=== PATIENT | male | born 1940 | race Caucasian/White ===

== ENCOUNTER → 2016-05-17 | Outpatient (CLI) | payer MEDICARE, OTHER | LOC: RAD 12:45 | PROVIDERS: ATTEND Internal Medicine Critical Care Medicine | DX: R91.1 Solitary pulmonary nodule (principal) | CPT/HCPCS: 71250 ==

== ENCOUNTER → 2016-11-14 | Outpatient (CLI) | payer MEDICARE, OTHER ==
--- NOTE | 2016-11-14 13:31 | RADIOLOGY REPORT (SQ) ---
EXAM DESCRIPTION: CT CHEST WITHOUT COMPLETED DATE/TIME: 11/14/2016 1:02 pm REASON FOR STUDY: PULMONARY NODULE (R91.1) R91.1 SOLITARY PULMONARY NODULE COMPARISON: 05/17/2016 and 01/25/2016. TECHNIQUE: CT scan performed of the chest without intravenous contrast. Images reviewed with lung, soft tissue and bone windows. Reconstructed coronal and sagittal MPR images reviewed. All images st ored on PACS. All CT scanners at this facility use dose modulation, iterative reconstruction, and/or weight based d osing when appropriate to reduce radiation dose to as low as reasonably achievable (ALARA). [facility]: Dose Right [facility]: CareDose [facility]: Dose Right [facility]: Teradose 4D [facility]: Smart [employer] RADIATION DOSE: Up-to-date CT equipment and radiation dose reduction techniques were employed. CTDIv ol: 10.2 mGy. DLP: 424 mGy-cm. mGy. LIMITATIONS: No technical limitations. FINDINGS: LUNGS AND PLEURA: Emphysematous changes. Stable flat 7 mm nodule along the right minor fi ssure. No change. No new nodules or masses. No infiltrates. No pleural effusion or pleural thicke alberto. No pneumothorax. HILAR AND MEDIASTINAL STRUCTURES: No identified masses or abnormal nodes. No obvious aneurysm. HEART AND VASCULAR STRUCTURES: No aneurysm. No pericardial effusion. UPPER ABDOMEN: Renal cysts appear unchanged although not fully imaged. Limited exam. THYROID AND OTHER SOFT TISSUES: No masses. No adenopathy. BONES: No significant finding. Degenerative changes in the spine. HARDWARE: None in the chest. OTHER: No other significant findings. IMPRESSION: STABLE NONCONTRAST CT OF THE CHEST. NO CHANGE IN THE 7 MM NODULE IN THE RIGHT MINOR FIS SURE. FOLLOW-UP CLINICALLY INDICATED. COMMENT: [place] CRITERIA FOR FOLLOW-UP OF PULMONARY NODULES Incidentally detected new nodules in persons 35 or older. HIGH RISK: History of smoking or other known risk factors. 6-8mm single solid nodule: LOW RISK: CT 6-12 mo; then consider CT 18-24 mo. HIGH RISK: CT 6-12 mo; th en CT 18-24 mo. TECHNICAL DOCUMENTATION: JOB ID: [id number] Quality ID # [id number]: Final reports with documentation of one or more dose reduction techniques (e.g., Au tomated exposure control, adjustment of the mA and/or kV according to patient size, use of iterative reconstruction technique) 2010 [employer]- All Rights Reserved
== END ==
LOC: RAD 12:40
PROVIDERS: ATTEND Internal Medicine Critical Care Medicine
DX: R91.1 Solitary pulmonary nodule (principal)
CPT/HCPCS: 71250

== ENCOUNTER → 2017-01-03 | Outpatient (CLI) | payer MEDICARE, OTHER ==
--- NOTE | 2017-01-03 11:43 | RADIOLOGY REPORT (SQ) ---
EXAM DESCRIPTION: U/S RETROPERITON (RENAL/AORTA) COMPLETED DATE/TIME: 01/03/2017 11:03 am REASON FOR STUDY: RENAL MASS N28.1 CYST OF KIDNEY, ACQUIRED COMPARISON: 2015. TECHNIQUE: Dynamic and static grayscale images acquired of the kidneys and bladder and recorded on P ACS. Additional selected color Doppler and spectral images recorded. LIMITATIONS: None. FINDINGS: RIGHT KIDNEY: Normal size. Normal echogenicity. No solid or suspicious masses. Renal cyst s are present, measuring up to almost 6 cm maximally. No hydronephrosis. No calcifications. LEFT KIDNEY: Normal size. Normal echogenicity. No solid or suspicious masses. Renal cysts are prese nt, measuring up to just over 2 cm maximally. No hydronephrosis. No calcifications. BLADDER: No masses. OTHER FINDINGS: Prostate 4.3 x 4.9 x 3.8 cm, mildly enlarged and heterogeneous. This indents the elizabeth dder base. IMPRESSION: No renal obstruction or solid mass evident. Bilateral renal cysts are present. TECHNICAL DOCUMENTATION: JOB ID: [id number] [employer]- All Rights Reserved
== END ==
LOC: RAD 09:50
PROVIDERS: ATTEND Urology
DX: N28.1 Cyst of kidney, acquired (principal)
CPT/HCPCS: 76770

== ENCOUNTER → 2017-11-27 | Outpatient (CLI) | payer MEDICARE, OTHER ==
--- NOTE | 2017-11-27 10:33 | RADIOLOGY REPORT (SQ) ---
EXAM DESCRIPTION: CT CHEST WITHOUT COMPLETED DATE/TIME: 11/27/2017 10:15 am REASON FOR STUDY: SOLITARY PULMONARY NODULE (R91.1) R91.1 SOLITARY PULMONARY NODULE COMPARISON: 11/14/2016 TECHNIQUE: CT scan performed of the chest without intravenous contrast. Images reviewed with lung, soft tissue and bone windows. Reconstructed coronal and sagittal MPR images reviewed. All images st ored on PACS. All CT scanners at this facility use dose modulation, iterative reconstruction, and/or weight based d osing when appropriate to reduce radiation dose to as low as reasonably achievable (ALARA). [facility]: Dose Right [facility]: CareDose [facility]: Dose Right [facility]: Teradose 4D [facility]: Onit RADIATION DOSE: CT Rad equipment meets quality standard of care and radiation dose reduction techniq ues were employed. CTDIvol: 7.7 mGy. DLP: 325 mGy-cm. mGy. LIMITATIONS: No technical limitations. FINDINGS: LUNGS AND PLEURA: Centrilobular emphysema. Stable 7 mm nodule in the middle lobe. This h as been stable since January 2016. No new nodules. No effusions. HILAR AND MEDIASTINAL STRUCTURES: No identified masses or abnormal nodes. No obvious aneurysm. HEART AND VASCULAR STRUCTURES: No aneurysm. No pericardial effusion. UPPER ABDOMEN: No significant findings. Limited exam. THYROID AND OTHER SOFT TISSUES: No masses. No adenopathy. BONES: No significant finding. HARDWARE: None in the chest. OTHER: No other significant findings. IMPRESSION: COPD. Stable right middle lobe nodule since January 2016. TECHNICAL DOCUMENTATION: JOB ID: [id number] Quality ID # [id number]: Final reports with documentation of one or more dose reduction techniques (e.g., Au tomated exposure control, adjustment of the mA and/or kV according to patient size, use of iterative reconstruction technique) 2010 [employer]- All Rights Reserved Reading location - IP/workstation name: [email or web address]
== END ==
LOC: RAD 10:03
PROVIDERS: ATTEND Internal Medicine Critical Care Medicine
DX: R91.1 Solitary pulmonary nodule (principal)
CPT/HCPCS: 71250

== ENCOUNTER → 2018-06-24 | Outpatient (CLI) | payer MEDICARE, OTHER ==
[2018-06-24 11:13] LABS: ANION GAP 9 (5-19); BLOOD UREA NITROGEN 18 mg/dL (7-20); CALCIUM 9.5 mg/dL (8.4-10.2); CARBON DIOXIDE 31 mmol/L (22-30); CHLORIDE 100 mmol/L (98-107); GLUCOSE 98 mg/dL (75-110); POTASSIUM 4.4 mmol/L (3.6-5.0); SODIUM 139.6 mmol/L (137-145)
== END ==
LOC: OD 09:57
PROVIDERS: ATTEND Internal Medicine Nephrology
DX: I12.9 Hypertensive chronic kidney disease with stage 1 through stage 4 chronic kidney disease, or unspecified chronic kidney disease (principal); N18.3 Chronic kidney disease, stage 3 (moderate)
CPT/HCPCS: 36415; 80048; 83970

== ENCOUNTER → 2018-10-03 | Outpatient (CLI) | payer MEDICARE, OTHER ==
[2018-10-03 08:50] LABS: ABSOLUTE BASOPHILS # (AUTO) 0.1 10^3/uL (0.0-0.2); ABSOLUTE EOSINOPHILS # (AUTO) 1.8 10^3/uL (0.0-0.6); ABSOLUTE LYMPHOCYTES (AUTO) 1.4 10^3/uL (0.5-4.7); ABSOLUTE MONOCYTES (AUTO) 0.9 10^3/uL (0.1-1.4); ABSOLUTE NEUT (AUTO) 5.3 10^3/uL (1.7-8.2); BASOPHILS % (AUTO) 0.6 % (0-2); EOSINOPHILS % (AUTO) 18.4 % (0-6); HEMATOCRIT 40.8 % (37.9-51.0); HEMOGLOBIN 13.6 g/dL (13.5-17.0); LYMPHOCYTES % (AUTO) 15.1 % (13-45); MEAN CORPUSCULAR HGB CONC 33.3 g/dL (32.0-36.0); MEAN CORPUSCULAR VOLUME 90 fl (80-97); MONOCYTES % (AUTO) 9.9 % (3-13); PLATELET COUNT 208 10^3/uL (150-450); RED BLOOD COUNT 4.53 10^6/uL (4.35-5.55); RED CELL DISTRIBUTION WIDTH 13.5 % (11.5-14.0); TOTAL CELLS COUNTED % (AUTO) 100 %; WHITE BLOOD COUNT 9.5 10^3/uL (4.0-10.5)
[2018-10-03 09:20] LABS: ALBUMIN 4.4 g/dL (3.5-5.0); ANION GAP 9 (5-19); BLOOD UREA NITROGEN 27 mg/dL (7-20); CALCIUM 9.1 mg/dL (8.4-10.2); CARBON DIOXIDE 30 mmol/L (22-30); CHLORIDE 104 mmol/L (98-107); GLUCOSE 97 mg/dL (75-110); PHOSPHORUS 3.9 mg/dL (2.5-4.5); POTASSIUM 4.5 mmol/L (3.6-5.0); SODIUM 142.7 mmol/L (137-145)
[2018-10-03 10:51] LABS: APPEARANCE,URINE CLEAR; BILIRUBIN,URINE NEGATIVE (NEGATIVE); COLOR,URINE YELLOW; GLUCOSE, URINE NEGATIVE (NEGATIVE); KETONES,URINE NEGATIVE (NEGATIVE); LEUKOCYTE ESTERASE,URINE NEGATIVE (NEGATIVE); NITRITE,URINE NEGATIVE (NEGATIVE); PROTEIN,URINE NEGATIVE (NEGATIVE); URINE SPECIFIC GRAVITY 1.018; UROBILINOGEN,URINE NEGATIVE mg/dL (<2.0)
[2018-10-04 13:37] LABS: CREATININE URINE 165.9 mg/dL (Not Estab.)
== END ==
LOC: OD 08:26
PROVIDERS: ATTEND Internal Medicine Nephrology
DX: I12.9 Hypertensive chronic kidney disease with stage 1 through stage 4 chronic kidney disease, or unspecified chronic kidney disease (principal); N18.3 Chronic kidney disease, stage 3 (moderate); E11.22 Type 2 diabetes mellitus with diabetic chronic kidney disease
CPT/HCPCS: 36415; 80069; 81001; 82043; 82306; 82570; 83970; 85025

== ENCOUNTER → 2019-02-28 | Outpatient (CLI) | payer MEDICARE, OTHER ==
[2019-02-28 10:19] LABS: ANION GAP 9 (5-19); BLOOD UREA NITROGEN 18 mg/dL (7-20); CALCIUM 9.6 mg/dL (8.4-10.2); CARBON DIOXIDE 32 mmol/L (22-30); CHLORIDE 100 mmol/L (98-107); GLUCOSE 140 mg/dL (75-110); POTASSIUM 4.4 mmol/L (3.6-5.0)
== END ==
LOC: OD 09:22
PROVIDERS: ATTEND Internal Medicine Nephrology
DX: I12.9 Hypertensive chronic kidney disease with stage 1 through stage 4 chronic kidney disease, or unspecified chronic kidney disease (principal); N18.3 Chronic kidney disease, stage 3 (moderate); N25.81 Secondary hyperparathyroidism of renal origin
CPT/HCPCS: 36415; 80048; 83970

== ENCOUNTER 2019-12-10 15:39 | Inpatient (IN) | payer MEDICARE, OTHER ==
[2019-12-10 16:00] LABS: ABSOLUTE BASOPHILS # (AUTO) 0.1 10^3/uL (0.0-0.2); ABSOLUTE EOSINOPHILS # (AUTO) 0.3 10^3/uL (0.0-0.6); ABSOLUTE LYMPHOCYTES (AUTO) 1.6 10^3/uL (0.5-4.7); ABSOLUTE MONOCYTES (AUTO) 2.3 10^3/uL (0.1-1.4); ABSOLUTE NEUT (AUTO) 8.2 10^3/uL (1.7-8.2); BASOPHILS % (AUTO) 0.6 % (0-2); EOSINOPHILS % (AUTO) 2.6 % (0-6); HEMATOCRIT 33.8 % (37.9-51.0); HEMOGLOBIN 11.4 g/dL (13.5-17.0); MEAN CORPUSCULAR HEMOGLOBIN 29.4 pg (27.0-33.4); MEAN CORPUSCULAR HGB CONC 33.7 g/dL (32.0-36.0); MEAN CORPUSCULAR VOLUME 87 fl (80-97); MONOCYTES % (AUTO) 18.4 % (3-13); PLATELET COUNT 287 10^3/uL (150-450); RED BLOOD COUNT 3.88 10^6/uL (4.35-5.55); RED CELL DISTRIBUTION WIDTH 14.2 % (11.5-14.0); SEGMENTED NEUTROPHILS % (AUTO) 65.4 % (42-78); TOTAL CELLS COUNTED % (AUTO) 100 %; WHITE BLOOD COUNT 12.5 10^3/uL (4.0-10.5)
[2019-12-10 16:03] LABS: INTERNATIONAL RATION (INR) 1.03; PROTHROMBIN TIME 13.7 SEC (11.4-15.4)
--- NOTE | 2019-12-10 16:14 | ER Document Report ---
ED General - General Chief Complaint: Palpitations Stated Complaint: HEART PALPITATIONS Time Seen by Provider: 12/10/19 15:51 Primary Care Provider: MATIAS ATKINSON MD [Primary Care Provider] - Follow up as needed TRAVEL OUTSIDE OF THE [place] IN LAST 30 DAYS: No - HPI Notes: Chief complaint: Palpitations and weakness History of present illness: 79-year-old male with history of CAD with multiple past stent placements states that he felt "weak" after returning home from grocery store early this afternoon. He decided to lie down at home to take a nap. Upon awakening he noticed that he had an irregular heartbeat. He took his blood pressure and this was low around 90/60 and the monitor also indicated irregularity of the heartbeat which is a new condition for this man. He denies any chest pain. He denies vomiting. He denies dyspnea. He denies any syncope or presyncope. Patient has been followed by sap pp consultant in [facility]. He is on chlorthalidone and a beta-shreya presumably for blood pressure management. He takes aspirin but is not on any other type of blood thinning agent. - Related Data Allergies/Adverse Reactions: No Known Allergies Allergy (Unverified 09/24/11 02:30) Home Medications: albuterol. Trelogy. Lipitor. Elsa. Atenolol. Famotidine. Aspirin. Vitamin E. Diovan. Zetia. Vitamin D3. Multivitamin Past Medical History - General Information source: Patient, [facility] Records - Social History Smoking Status: Current Every Day Smoker Frequency of alcohol use: None Drug Abuse: None Lives with: Family Family History: Reviewed & Not Pertinent - Past Medical History Cardiac Medical History: Reports: Hx Coronary Artery Disease, Hx Hypercholesterolemia, Hx Hypertension Denies: Hx Atrial Fibrillation, Hx Pulmonary Embolism Pulmonary Medical History: Reports: Hx COPD Neurological Medical History: Reports: None Endocrine Medical History: Denies: Hx Diabetes Mellitus Type 1, Hx Diabetes Mellitus Type 2, Hx Hyperthyroidism Renal/ Medical History: Reports: Hx Renal Insufficiency Past Surgical History: Reports: Hx Cardiac Surgery - stents times 2 - Immunizations Hx Diphtheria, Pertussis, Tetanus Vaccination: Yes Review of Systems - Review of Systems Notes: Constitutional: Negative for fever. HENT: Negative for sore throat. Eyes: Negative for visual changes. Cardiovascular: As per HPI. Respiratory: Chronic exertional dyspnea with intermittent wheezing secondary to COPD. Gastrointestinal: Negative for abdominal pain, vomiting or diarrhea. Genitourinary: Negative for dysuria. Musculoskeletal: Chronic intermittent swelling and pain both ankles. Skin: Negative for rash. Neurological: Negative for headaches, focal weakness or numbness. 10 point ROS negative except as marked above and in HPI. Physical Exam - Vital signs Vitals: Temp 97.8 F 12/10/19 15:40 - Notes Notes: GENERAL: Slender male appearing somewhat younger than stated age in no current distress. SKIN: Good turgor no rashes. HEAD: Normocephalic atraumatic. EYES: PERRLA. EOMI. Conjunctivae and sclerae clear. EARS: CANALS AND TMS CLEAR. NOSE: CLEAR. MOUTH: Moist mucosa. Good dentition. No stridor or edema. No drooling. NECK: Supple. No masses or thyromegaly. No adenopathy. Carotids 2+ without bruits. No JVD. BACK: Symmetrical without tenderness. CHEST: Respirations unlabored. Breath sounds clear and symmetrical. HEART: Irregularly irregular rhythm. No murmur gallop or rub. ABDOMEN: Soft nontender without masses, organomegaly or rebound. Bowel sounds normally active. No bruits. GENITALIA: Deferred. EXTREMITIES: No edema. No calf tenderness. Cap refill less than 1.5 seconds. Dorsalis pedis and posterior tibial pulses 3+ and symmetrical. NEUROLOGICAL: GCS 15. Alert and oriented x3. Fluent speech. Cranial nerves II through XII intact. Sensorimotor and cerebellar normal. Normal tone. PSYCHIATRIC: Appropriate affect. Course - Re-evaluation Re-evalutation: 12/10/19 16:14 Monitor shows atrial fibrillation with a controlled ventricular rate. We note the patient is already taking a beta-shreya. Twelve-lead EKG shows atrial fibrillation with an average rate of 76. There are no acute ST/T wave changes present. 12/10/19 18:06 Patient's potassium is marginally low at 3.4 with a normal magnesium level. He has some mild baseline renal insufficiency with creatinine approximately 1.7. He is mildly anemic at 11.6 g of hemoglobin consistent with his chronic renal insufficiency. His troponin is minimally elevated 0.05 which is probably due to his renal insufficiency. We will give him some IV hydration and some oral potassium as well as IV potassium. I will repeat a second troponin. If second troponin is trending downward and he converts back to a sinus rhythm I think he could probably go home. He would appear to be a candidate for initiation of therapy with Xarelto. Because of his renal insufficiency the dosage should be reduced to 15 mg daily. If he fails to return to normal sinus rhythm or his troponin rises he will require admission. I have paged Dr. Hall with [facility] who is covering for his sap pp consultant, Dr. Harpreet Khalil. Findings, clinical impression and plan of treatment have been discussed with patient/family. Understanding of current findings and recommendations has been acknowledged by them and there is agreement regarding disposition and follow-up. 12/10/19 18:51 12/10/19 19:11 12/10/19 19:22 Current findings and management discussed with Dr. Hall online marketer for Dr. Harpreet Khalil. He is comfortable with management plan outlined above. He furthermore states that because this man has adequate rate control he would still be comfortable with us discharging the patient if he fails to convert back to sinus rhythm at this time. They will see him in the office tomorrow for follow-up. We are awaiting the second troponin and after this is reviewed we anticipate discharge. - Vital Signs Vital signs: Temp Pulse Resp BP Pulse Ox 97.8 F 96 12/10/19 15:40 12/10/19 15:48 - Laboratory Result Diagrams: 12/10/19 15:03 12/10/19 15:03 Laboratory results interpreted by me: 12/10/19 12/10/19 12/10/19 15:03 15:03 15:03 WBC 12.5 H RBC 3.88 L Hgb 11.4 L Hct 33.8 L RDW 14.2 H [place] % (Auto) 18.4 H Absolute Monos (auto) 2.3 H Sodium 134.4 L Potassium 3.4 L Chloride 95 L BUN 24 H Creatinine 1.77 H Est GFR ( Amer) 45 L Est GFR (MDRD) Non-Af 37 L NT-Pro-B Natriuret Pep 688 H - EKG Interpretation by Me Additional EKG results interpreted by me: 12/10/19 16:15 Twelve-lead EKG from 1554 hrs. reviewed contemporaneously by me demonstrating atrial fibrillation with controlled ventricular response of 76. His QRS and QT intervals are normal. His QRS axis is normal at +[address]/T wave changes present. Interpretation: Atrial fibrillation with controlled ventricular rate. Indication for current study: Palpitations. Discharge - Discharge Clinical Impression: Atrial fibrillation new onset, Hypokalemia, Chronic renal insufficiency Disposition: HOME, SELF-CARE Additional Instructions: Atrial Fibrillation Atrial fibrillation is an abnormal heart rhythm, caused by irregular electrical circuits in the upper heart chamber. It can be caused by heart valve disease, hardening of the arteries, or metabolic problems such as thyroid disease, or may occur without a clear cause. Atrial fibrillation may occur only occasionally, or may be chronic. Atrial fibrillation often results in a very fast heart rate, with palpitations, lightheadedness, and shortness of breath. Treatment is to slow the abnormally fast rate, and to convert the rhythm back to normal, if possible. Many patients stay in atrial fibrillation for years without symptoms or complications. Your doctor will decide whether you can be converted back to a normal heart rhythm. Contact the doctor or emergency medical system at once if you develop chest pain, shortness of breath, or severe lightheadedness, or if you develop any disturbance of consciousness, problems with speech, or localized weakness.Call your sap pp consultant (Dr. Harpreet Khalil) tomorrow morning to arrange follow-up in the office within the next 24 hours. Add these 2 new medications: Xarelto 15 mg daily Potassium extended release 20 mg daily Return here as needed for new or worsening symptoms: Development of chest pain Shortness of breath that is worsening Vomiting Fainting Overall worsening Prescriptions: Potassium Chloride 20 meq PO DAILY 7 Days #7 tab.er.prt Rivaroxaban [Xarelto 15 mg Tablet] 15 mg PO DAILY 30 Days #30 tablet Referrals: MATIAS ATKINSON MD [Primary Care Provider] - Follow up as needed HARPREET KAHLIL MD [NO LOCAL MD] - Follow up as needed
[2019-12-10 16:21] LABS: ALBUMIN 3.6 g/dL (3.5-5.0); ALKALINE PHOSPHATASE 85 U/L (38-126); ANION GAP 11 (5-19); ASPARTATE AMINO TRANSFERASE 33 U/L (17-59); BILIRUBIN,DIRECT 0.4 mg/dL (0.0-0.4); BILIRUBIN,TOTAL 0.8 mg/dL (0.2-1.3); BLOOD UREA NITROGEN 24 mg/dL (7-20); CALCIUM 8.5 mg/dL (8.4-10.2); CARBON DIOXIDE 28 mmol/L (22-30); CHLORIDE 95 mmol/L (98-107); CREATINE KINASE 79 U/L (55-170); GLUCOSE 107 mg/dL (75-110); POTASSIUM 3.4 mmol/L (3.6-5.0); TOTAL PROTEIN 6.9 g/dL (6.3-8.2)
--- NOTE | 2019-12-10 16:27 | RADIOLOGY REPORT (SQ) ---
EXAM DESCRIPTION: CHEST SINGLE VIEW IMAGES COMPLETED DATE/TIME: 12/10/2019 4:18 pm REASON FOR STUDY: chest pain COMPARISON: None. EXAM PARAMETERS: NUMBER OF VIEWS: One view. TECHNIQUE: Single frontal radiographic view of the chest acquired. RADIATION DOSE: NA LIMITATIONS: None. FINDINGS: LUNGS AND PLEURA: There is hyperexpansion. No consolidation or effusion. No pneumothorax . MEDIASTINUM AND HILAR STRUCTURES: No masses. Contour normal. HEART AND VASCULAR STRUCTURES: Heart normal in size. Normal vasculature. BONES: No acute findings. HARDWARE: None in the chest. OTHER: No other significant finding. IMPRESSION: COPD. No acute findings. TECHNICAL DOCUMENTATION: JOB ID: [id number] 2010 [employer]- All Rights Reserved Reading location - IP/workstation name: [email or web address]
[2019-12-10 16:33] LABS: CREATINE KINASE MB 1.23 ng/mL (<4.55)
[2019-12-10 16:38] LABS: TROPONIN I 0.055 ng/mL
[2019-12-10] MEDS ORDERED: NORMAL SALINE 1000 ML 1,000 ML IV ONE ×2 (17:40→21:07)
[2019-12-10] MEDS ORDERED: POTASSI CL 20 MEQ/50 ML RIDER 20 MEQ/50 ML RTUPB IV ONE (17:41)
[2019-12-10] MEDS ORDERED: POTASSIUM CHLORIDE 20 MEQ PACKET PO ONE (17:42)
[2019-12-10] MEDS ORDERED: ASPIRIN 81 MG TABLET, CHEWABLE PO ONE (19:59)
[2019-12-10] MEDS ORDERED: ENOXAPARIN SODIUM INJ 80 MG/0.8 ML DISP.SYRIN SUBCUT ONE (20:50)
[2019-12-10] MEDS ORDERED: DEXTROSE 40% GEL 15 GM TUBE PO PRN ×2 (21:03)
[2019-12-10] MEDS ORDERED: DEXTROSE 50%-WATER 25 GM/50 ML DISP.SYRIN IV PRN ×2 (21:03)
[2019-12-10] MEDS ORDERED: ONDANSETRON HCL INJ/PF 4 MG/2 ML SDV IV PRN (21:03)
[2019-12-10] MEDS ORDERED: OXYCODONE-ACETAMINOPHEN 5-325 MG TABLET PO PRN (21:03)
[2019-12-10] MEDS ORDERED: TEMAZEPAM 7.5 MG CAPSULE PO PRN (21:03)
[2019-12-10] MEDS ORDERED: LEVALBUTEROL HCL NEB 0.63 MG/3 ML AMPUL NEB PRN (21:03)
[2019-12-10] MEDS ORDERED: ACETAMINOPHEN 325 MG TABLET PO PRN (21:03)
[2019-12-10] MEDS ORDERED: GLUCAGON,HUMAN RECOMB 1 MG INJ SUBCUT PRN (21:03)
[2019-12-10] MEDS ORDERED: PROMETHAZINE HCL INJ 25 MG/1 ML VIAL IV PRN (21:03)
[2019-12-10] MEDS ORDERED: NITROGLYCERIN 0.4 MG/TAB 25 TAB/BOTTLE SL PRN (21:11)
[2019-12-10] MEDS ORDERED: MORPHINE SULFATE 10 MG/ML INJ IV PRN (21:11)
[2019-12-10] MEDS ORDERED: HYDRALAZINE HCL INJ/PF 20 MG/1 ML SDV IV PRN (21:16)
[2019-12-10] MEDS ORDERED: METOPROLOL TARTRATE PF/INJ 5 MG/5 ML SDV IV PRN (21:16)
--- NOTE | 2019-12-10 21:41 | PDOC H&P ---
History of Present Illness Admission Date/PCP: 12/10/19 20:33 MATIAS ATKINSON MD History of Present Illness: Josep AGRAWAL is a 79 year old male past medical history of CAD status post PCI x2 and stent placement, non-oxygen dependent COPD, hypertension, CKD, hyperlipidemia, presented to ED complaining of feeling weak after returning from grocery shopping this afternoon, patient decided to take a nap but upon awakening he felt palpitation and checked his pressure which was the 90s, he d oes not have any history of arrhythmia however stated that for long time he has been feeling skipped beats which he has reported to his care attendant before, denies any lightheadedness, chest pain, diaphoresis, nausea, vomiting, dyspnea on exertion, orthopnea or paroxysmal nocturnal dyspnea. In ED he was noted to be A. fib RVR which converted spontaneously, ED physician had discussed this case with his care attendant Dr. Khalil at [facility] and it was decided for patient to be discharged and follow-up with his care attendant however second set of troponin came back 0.239 [address] Beckman care attendant was consulted by ED physician and he suggested for patient to be admitted, started on Lovenox in anticipation of a left heart cath on Sunday. Patient very hesitant to stay however after discussing with him that he may have had a heart attack and is not safe to leave patient decided to stay. Patient resting comfortably in bed in no apparent distress, palpitation has re solved, denies any chest pain, nausea, vomiting, diarrhea, fever, chills, cough, abdominal pain, constipation or any urinary symptoms. Past Medical History Cardiac Medical History: Reports: Coronary Artery Disease, Hyperlipidema, Hypertension Denies: Atrial Fibrillation, Pulmonary Embolism Pulmonary Medical History: Reports: Chronic Obstructive Pulmonary Disease (COPD) Neurological Medical History: Reports: None Endocrine Medical History: Denies: Diabetes Mellitus Type 1, Diabetes Mellitus Type 2, Hyperthyroidism Social History Lives with: Family Smoking Status: Current Every Day Smoker Electronic Cigarette use?: Yes Family History Family History: Reviewed & Not Pertinent Parental Family History Reviewed: Yes Children Family History Reviewed: Yes Sibling(s) Family History Reviewed.: Yes Medication/Allergy Home Medications: Albuterol Sulfate [Proair HFA Inhalation Aerosol 8.5 gm MDI] 1 puff IH Q4HP PRN 12/10/19 Aspirin [Aspirin 81 mg Chewable Tablet] 81 mg DAILY 12/10/19 Atenolol [Tenormin 50 mg Tablet] 25 mg TID 12/10/19 Atorvastatin Calcium [Lipitor 40 mg Tablet] 40 mg DAILY 12/10/19 Chlorthalidone [Hygroton 25 mg Tablet] 12.5 mg DAILY 12/10/19 Cholecalciferol (Vitamin D3) [Vitamin D3 1000 Unit Tablet] 1,000 unit PO QPM 12/10/19 Ezetimibe [Zetia] 10 mg PO DAILY 12/10/19 Famotidine [Acid Last Waxer] 20 mg PO TID 12/10/19 Fexofenadine HCl [Elsa Allergy] 180 mg DAILY 12/10/19 Fluticasone/Umeclidin/Vilanter [Trelegy 100-62.5-25 Mcg Ellipta 14 Dose/Dpi] 1 each DAILY 12/10/19 Multivitamin [Multivitamins] 1 cap DAILY 12/10/19 Valsartan [Diovan] 80 mg DAILY 12/10/19 Vitamin E 400 unit PO DAILY 12/10/19 Allergies/Adverse Reactions: No Known Allergies Allergy (Unverified 09/24/11 02:30) Review of Systems Review of Systems: as per hpi Physical Exam Vital Signs: Temp Pulse Resp BP Pulse Ox 97.8 F 22 H 103/55 L 96 12/10/19 15:40 12/10/19 21:01 12/10/19 21:01 12/10/19 21:01 Intake & Output 12/09/19 12/10/19 12/11/19 06:59 06:59 06:59 Intake Total 50 Balance 50 Weight 81.6 kg General appearance: PRESENT: no acute distress, well-developed, well-nourished Head exam: PRESENT: atraumatic, normocephalic Neck exam: ABSENT: carotid bruit, JVD, lymphadenopathy, thyromegaly Respiratory exam: PRESENT: clear to auscultation mars. ABSENT: rales, rhonchi, wheezes Cardiovascular exam: PRESENT: irregular rhythm, RRR. ABSENT: diastolic murmur, rubs, systolic murmur GI/Abdominal exam: PRESENT: normal bowel sounds, soft. ABSENT: distended, guarding, mass, organolmegaly, rebound, tenderness Extremities exam: PRESENT: full ROM. ABSENT: calf tenderness, clubbing, pedal edema Neurological exam: PRESENT: alert, awake, oriented to person, oriented to place, oriented to time, oriented to situation, CN II-XII grossly intact. ABSENT: motor sensory deficit Results Laboratory Results: 12/10/19 15:03 12/10/19 15:03 12/10/19 12/10/19 12/10/19 15:03 15:03 15:03 WBC 12.5 H RBC 3.88 L Hgb 11.4 L Hct 33.8 L MCV 87 MCH 29.4 MCHC 33.7 RDW 14.2 H Plt Count 287 Seg Neutrophils % 65.4 Sodium 134.4 L Potassium 3.4 L Chloride 95 L Carbon Dioxide 28 Anion Gap 11 BUN 24 H Creatinine 1.77 H Est GFR ( Amer) 45 L Glucose 107 Calcium 8.5 Magnesium 2.1 Total Bilirubin 0.8 AST 33 Alkaline Phosphatase 85 Total Protein 6.9 Albumin 3.6 TSH 12/10/19 15:03 WBC RBC Hgb Hct MCV MCH MCHC RDW Plt Count Seg Neutrophils % Sodium Potassium Chloride Carbon Dioxide Anion Gap BUN Creatinine Est GFR ( Amer) Glucose Calcium Magnesium Total Bilirubin AST Alkaline Phosphatase Total Protein Albumin TSH 2.63 12/10/19 12/10/19 12/10/19 15:03 15:03 15:03 Creatine Kinase 79 CK-MB (CK-2) 1.23 Troponin I 0.055 NT-Pro-B Natriuret Pep 688 H 12/10/19 19:08 Creatine Kinase CK-MB (CK-2) Troponin I 0.239 NT-Pro-B Natriuret Pep Impressions: Chest X-Ray 12/10/19 15:48 IMPRESSION: COPD. No acute findings. Assessment and Plan - Diagnosis (1) Non-STEMI (non-ST elevated myocardial infarction) Is this a current diagnosis for this admission?: Yes Plan: Possibly NSTEMI type II due to demand mismatch caused by new onset A. fib RVR. Patient denies any chest pain, shortness of breath, orthopnea or paroxysmal nocturnal dyspnea. Troponin on admission 0.055, 0.239 respectively. Admit to IMC, antiplatelets, low molecular weight heparin, statins, beta- blockers, ARB, sublingual nitroglycerin, supplemental oxygen, morphine, 2D echo, trend troponins. Cardiology consulted in anticipation for left heart cath. Follow-up recommendations. (2) Atrial fibrillation with RVR Is this a current diagnosis for this admission?: Yes Plan: New onset paroxysmal A. fib RVR. TSH, T3-T4 WNL. CHADS Score 3. Chronic anticoagulation recommended. Rate controlled on beta-blockers. Currently on low molecular weight heparin which could be transitioned to novel anticoagulants upon discharge. Pending 2D echo. Cardiology consulted. Recommendations pending. (3) CAD (coronary artery disease) Qualifiers: Coronary Disease-Associated Artery/Lesion type: [place] artery Is this a current diagnosis for this admission?: Yes Plan: Denies any anginal symptoms. History of CAD status post PCI x2 with stent placement. Troponin on admission 0.055, 0.239 respectively. Continue antiplatelets, ARB, beta-blockers, statins. (4) Hypertension Qualifiers: Hypertension type: essential hypertension Qualified Code(s): I10 - Essential (primary) hypertension Is this a current diagnosis for this admission?: Yes Plan: Euvolemic. Normotensive. Resume home meds. Adjust meds as needed. Outpatient PCP and cardiology follow- up. (5) COPD (chronic obstructive pulmonary disease) Qualifiers: COPD type: chronic bronchitis Is this a current diagnosis for this admission?: Yes Plan: History of non-oxygen COPD. Former smoker. Continue duo nebs, PRN BiPAP, LABA, LABA, ICS. (6) Hyperlipidemia Is this a current diagnosis for this admission?: Yes Plan: Resume statin and ezetimibe. Diet and lifestyle modification recommended. TSH WNL. (7) CKD (chronic kidney disease) stage 2, GFR 60-89 ml/min Is this a current diagnosis for this admission?: Yes Plan: History of chronic CKD, nonoliguric, sees Dr. Atkinson as outpatient. Monitor volume status and electrolytes, avoid nephrotoxic meds. Outpatient PCP and nephrology follow-up. - Time Time Spent with patient: 35 or more minutes Smoking Cessation Education: 3 to 10 minutes Medications reviewed and adjusted accordingly: Yes Anticipated Discharge Disposition: Home with Home Health Anticipated Discharge Timeframe: within 72 hours
--- NOTE | 2019-12-10 21:59 | EKG REPORT ---
SEVERITY:- ABNORMAL ECG - ATRIAL FIBRILLATION, V-RATE 61-93 : Confirmed by: Shaila Griffith MD 10-Dec-2019 21:58:05
[2019-12-10] MEDS ORDERED: ATORVASTATIN CALCIUM 40 MG TABLET PO SCH (22:00)
[2019-12-10] MEDS ORDERED: FAMOTIDINE 20 MG TABLET PO SCH ×2 (22:00)
[2019-12-10] MEDS: ENOXAPARIN SODIUM INJ 80 MG/0.8 ML DISP.SYRIN SUBCUT SCH (22:24)
[2019-12-10] MEDS: ATENOLOL 50 MG TABLET PO SCH (22:28)
[2019-12-10 22:48] LABS: APPEARANCE,URINE CLEAR; BILIRUBIN,URINE NEGATIVE (NEGATIVE); COLOR,URINE YELLOW; GLUCOSE, URINE NEGATIVE (NEGATIVE); KETONES,URINE NEGATIVE (NEGATIVE); LEUKOCYTE ESTERASE,URINE NEGATIVE (NEGATIVE); NITRITE,URINE NEGATIVE (NEGATIVE); PROTEIN,URINE NEGATIVE (NEGATIVE); URINE SPECIFIC GRAVITY 1.009; UROBILINOGEN,URINE NEGATIVE mg/dL (<2.0)
[2019-12-10 23:23] LABS: ADD MANUAL MICROSCOPIC YES; RBC,URINE RARE /HPF; WBC,URINE RARE /HPF
[2019-12-11 05:11] LABS: ABSOLUTE BASOPHILS # (AUTO) 0.1 10^3/uL (0.0-0.2); ABSOLUTE EOSINOPHILS # (AUTO) 0.8 10^3/uL (0.0-0.6); ABSOLUTE LYMPHOCYTES (AUTO) 1.5 10^3/uL (0.5-4.7); ABSOLUTE MONOCYTES (AUTO) 1.1 10^3/uL (0.1-1.4); BASOPHILS % (AUTO) 0.7 % (0-2); EOSINOPHILS % (AUTO) 9.8 % (0-6); HEMATOCRIT 32.9 % (37.9-51.0); HEMOGLOBIN 11.2 g/dL (13.5-17.0); LYMPHOCYTES % (AUTO) 17.9 % (13-45); MEAN CORPUSCULAR HEMOGLOBIN 29.7 pg (27.0-33.4); MEAN CORPUSCULAR VOLUME 88 fl (80-97); PLATELET COUNT 258 10^3/uL (150-450); RED BLOOD COUNT 3.76 10^6/uL (4.35-5.55); RED CELL DISTRIBUTION WIDTH 14.4 % (11.5-14.0); SEGMENTED NEUTROPHILS % (AUTO) 58.6 % (42-78); TOTAL CELLS COUNTED % (AUTO) 100 %; WHITE BLOOD COUNT 8.5 10^3/uL (4.0-10.5)
[2019-12-11 05:19] LABS: ALBUMIN 3.2 g/dL (3.5-5.0); ALKALINE PHOSPHATASE 87 U/L (38-126); ANION GAP 7 (5-19); ASPARTATE AMINO TRANSFERASE 41 U/L (17-59); BILIRUBIN,DIRECT 0.3 mg/dL (0.0-0.4); BILIRUBIN,TOTAL 0.7 mg/dL (0.2-1.3); BLOOD UREA NITROGEN 26 mg/dL (7-20); CALCIUM 8.5 mg/dL (8.4-10.2); CARBON DIOXIDE 28 mmol/L (22-30); CHLORIDE 101 mmol/L (98-107); CHOLESTEROL 94.83 mg/dL (0-200); GLUCOSE 92 mg/dL (75-110); PHOSPHORUS 3.5 mg/dL (2.5-4.5); POTASSIUM 3.4 mmol/L (3.6-5.0); TOTAL PROTEIN 6.2 g/dL (6.3-8.2); TRIGLYCERIDES 110 mg/dL (<150)
[2019-12-11 05:30] LABS: DIRECT LDL 48 mg/dL (<100)
[2019-12-11] MEDS ORDERED: ASPIRIN 81 MG TABLET, CHEWABLE PO SCH ×2 (08:00→10:00)
[2019-12-11] MEDS ORDERED: VALSARTAN 40 MG TABLET PO SCH (08:00)
[2019-12-11] MEDS ORDERED: ONDANSETRON HCL INJ/PF 4 MG/2 ML SDV IV PRN (08:00)
[2019-12-11] MEDS ORDERED: PROMETHAZINE HCL INJ 25 MG/1 ML VIAL IV PRN (08:00)
[2019-12-11] MEDS ORDERED: FLUTICASONE/UMECLIDIN/VILANTER 100-62.5-25 MCG/DOSE IH SCH (08:00)
[2019-12-11] MEDS ORDERED: VALSARTAN 80 MG TABLET PO SCH (08:00)
[2019-12-11] MEDS ORDERED: DOCUSATE SODIUM 100 MG CAPSULE PO SCH (10:00)
--- NOTE | 2019-12-11 10:26 | PDOC CONSULTATION ---
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 The patient had been in his usual state of health until yesterday when he became upset with his after she did not buy the correct groceries. After that "I just did not feel well" and laid down for several minutes. He continued to feel bad however could not tell me specifically what he felt. Upon checking his blood pressure with his machine at home noticed that his heart rate was 150 bpm with a low blood pressure. He continued to feel generalized unwell and sought medical attention in our emergency room. At that point he was found to be in rapid A. fib which event ually improved and actually self converted to sinus rhythm after admission. He specifically denied chest pain, diaphoresis, syncope and presyncope. This morning he is back to his baseline and feeling very well. He specifically denies chest pain, palpitations, shortness of breath, WILSON, PND, orthopnea, lower extremity edema, syncope and presyncope. His telemetry shows normal sinus rhythm. Physical exam on 12/11/2019: GENERAL: Pleasant and conversational. Oriented x3 with normal mood. Not in acute distress. Well groomed and well developed. HEENT: Normocephalic, atraumatic. Pupils equal. Sclerae anicteric. Oropharynx moist. NECK: No JVD. No carotid bruits. LUNGS: Clear to auscultation bilaterally. Normal respiratory effort without the use of accessory muscles or intercostal retractions. CARDIOVASCULAR: Regular rate and rhythm, normal S1 and S2 without murmurs, rubs, or gallops. PMI not displaced. ABDOMEN: No masses or tenderness to palpation. No bruit. No splenomegaly or hepatomegaly. No abdominal aorta bruit noted. EXTREMITIES: No edema, no cyanosis, no clubbing. +2 pulses femoral and pedal pulses bilaterally. SKIN: No lesions or rashes. MUSCULOSKELETAL: No chest tenderness to palpation. NEUROLOGIC: Nonfocal. No gross sensory or motor deficits bilateral upper or lower extremities. Cardiac studies: [facility] on 02/02/2019 at [facility]: -Left main: Normal. -LAD: 95% stenosis after first diagonal--> 2.5 mm x 14 mm [place] TERI -Left circumflex: Luminal irregularities. -RCA: Dominant vessel. Diffuse disease in the mid vessel with ulcerated plaque and a 70 to 75% stenosis after a mid RCA stent--> 3.0 mm x 24 mm [place] [facility]. Distal RCA is 70 to 80% occluded. Past Medical History Cardiac Medical History: Reports: Coronary Artery Disease, Hyperlipidema, Hypertension Denies: Atrial Fibrillation, Pulmonary Embolism Pulmonary Medical History: Reports: Chronic Obstructive Pulmonary Disease (COPD) Neurological Medical History: Reports: None Endocrine Medical History: Denies: Diabetes Mellitus Type 1, Diabetes Mellitus Type 2, Hyperthyroidism Psychiatric Medical History: Denies: Depression Social History Lives with: Family Smoking Status: Current Every Day Smoker Electronic Cigarette use?: Yes Number of Years Smokin Frequency of Alcohol Use: None Hx Recreational Drug Use: No Family History Family History: Reviewed & Not Pertinent Parental Family History Reviewed: Yes Children Family History Reviewed: Yes Sibling(s) Family History Reviewed.: Yes Medication/Allergy Home Medications: Albuterol Sulfate [Proair HFA Inhalation Aerosol 8.5 gm MDI] 1 puff IH Q4HP PRN 12/10/19 Aspirin [Aspirin 81 mg Chewable Tablet] 81 mg PO QAM 12/10/19 Atenolol [Tenormin 50 mg Tablet] 25 mg PO BID 12/10/19 Atorvastatin Calcium [Lipitor 40 mg Tablet] 40 mg PO QHS 12/10/19 Chlorthalidone [Hygroton 25 mg Tablet] 12.5 mg PO QAM 12/10/19 Cholecalciferol (Vitamin D3) [Vitamin D3 1000 Unit Tablet] 1,000 unit PO QPM 12/10/19 Ezetimibe [Zetia] 10 mg PO QPM 12/10/19 Famotidine [Acid Emery Grinder] 20 mg PO BID 12/10/19 Fexofenadine HCl [Elsa Allergy] 180 mg PO QAM 12/10/19 Fluticasone/Umeclidin/Vilanter [Trelegy 100-62.5-25 Mcg Ellipta 14 Dose/Dpi] 1 puff IH QAM 12/10/19 Multivitamin [Multivitamins] 1 cap PO QAM 12/10/19 Valsartan [Diovan] 80 mg PO QAM 12/10/19 Vitamin E 400 unit PO QPM 12/10/19 Allergies/Adverse Reactions: No Known Allergies Allergy (Unverified 09/24/11 02:30) Physical Exam Vital Signs: Temp Pulse Resp BP Pulse Ox 97.7 F 59 L 16 107/46 L 96 12/11/19 03:47 12/11/19 03:47 12/11/19 03:47 12/11/19 03:47 12/11/19 03:47 Intake & Output 12/10/19 12/11/19 12/12/19 06:59 06:59 06:59 Intake Total 450 Output Total 0 Balance 450 Weight 82.7 kg Results Laboratory Results: 12/11/19 04:05 12/11/19 04:05 12/10/19 12/10/19 12/10/19 15:03 15:03 15:03 WBC 12.5 H RBC 3.88 L Hgb 11.4 L Hct 33.8 L MCV 87 MCH 29.4 MCHC 33.7 RDW 14.2 H Plt Count 287 Seg Neutrophils % 65.4 Sodium 134.4 L Potassium 3.4 L Chloride 95 L Carbon Dioxide 28 Anion Gap 11 BUN 24 H Creatinine 1.77 H Est GFR ( Amer) 45 L Glucose 107 Calcium 8.5 Phosphorus Magnesium 2.1 Total Bilirubin 0.8 AST 33 Alkaline Phosphatase 85 Total Protein 6.9 Albumin 3.6 Triglycerides Cholesterol LDL Cholesterol Direct VLDL Cholesterol HDL Cholesterol TSH Urine Color Urine Appearance Urine pH Ur Specific [place] Urine Protein Urine Glucose (UA) Urine Ketones Urine Blood Urine Nitrite Ur Leukocyte Esterase 12/10/19 12/10/19 12/11/19 15:03 22:20 04:05 WBC 8.5 RBC 3.76 L Hgb 11.2 L Hct 32.9 L MCV 88 MCH 29.7 MCHC 34.0 RDW 14.4 H Plt Count 258 Seg Neutrophils % 58.6 Sodium Potassium Chloride Carbon Dioxide Anion Gap BUN Creatinine Est GFR ( Amer) Glucose Calcium Phosphorus Magnesium Total Bilirubin AST Alkaline Phosphatase Total Protein Albumin Triglycerides Cholesterol LDL Cholesterol Direct VLDL Cholesterol HDL Cholesterol TSH 2.63 Urine Color YELLOW Urine Appearance CLEAR Urine pH 5.0 Ur Specific [place] 1.009 Urine Protein NEGATIVE Urine Glucose (UA) NEGATIVE Urine Ketones NEGATIVE Urine Blood NEGATIVE Urine Nitrite NEGATIVE Ur Leukocyte Esterase NEGATIVE 12/11/19 04:05 WBC RBC Hgb Hct MCV MCH MCHC RDW Plt Count Seg Neutrophils % Sodium 136.4 L Potassium 3.4 L Chloride 101 Carbon Dioxide 28 Anion Gap 7 BUN 26 H Creatinine 1.59 H Est GFR ( Amer) 51 L Glucose 92 Calcium 8.5 Phosphorus 3.5 Magnesium 2.2 Total Bilirubin 0.7 AST 41 Alkaline Phosphatase 87 Total Protein 6.2 L Albumin 3.2 L Triglycerides 110 Cholesterol 94.83 LDL Cholesterol Direct 48 VLDL Cholesterol 22.0 HDL Cholesterol 28 L TSH Urine Color Urine Appearance Urine pH Ur Specific [place] Urine Protein Urine Glucose (UA) Urine Ketones Urine Blood Urine Nitrite Ur Leukocyte Esterase 12/10/19 12/10/19 12/10/19 15:03 15:03 15:03 Creatine Kinase 79 CK-MB (CK-2) 1.23 Troponin I 0.055 NT-Pro-B Natriuret Pep 688 H 12/10/19 12/10/19 12/11/19 19:08 21:42 04:05 Creatine Kinase CK-MB (CK-2) Troponin I 0.239 0.237 0.187 NT-Pro-B Natriuret Pep Impressions: Chest X-Ray 12/10/19 15:48 IMPRESSION: COPD. No acute findings. 12/11/19 04:05 12/11/19 04:05 MCV 88 fl (80-97) 12/11/19 04:05 MCH 29.7 pg (27.0-33.4) 12/11/19 04:05 MCHC 34.0 g/dL (32.0-36.0) 12/11/19 04:05 RDW 14.4 % (11.5-14.0) H 12/11/19 04:05 Seg Neutrophils % 58.6 % (42-78) 12/11/19 04:05 Chloride 101 mmol/L (98-107) 12/11/19 04:05 Carbon Dioxide 28 mmol/L (22-30) 12/11/19 04:05 Anion Gap 7 (5-19) 12/11/19 04:05 Est GFR ( Amer) 51 (>60) L 12/11/19 04:05 Glucose 92 mg/dL (75-110) 12/11/19 04:05 Calcium 8.5 mg/dL (8.4-10.2) 12/11/19 04:05 Phosphorus 3.5 mg/dL (2.5-4.5) 12/11/19 04:05 Magnesium 2.2 mg/dL (1.6-2.3) 12/11/19 04:05 Total Bilirubin 0.7 mg/dL (0.2-1.3) 12/11/19 04:05 AST 41 U/L (17-59) 12/11/19 04:05 Alkaline Phosphatase 87 U/L (38-126) 12/11/19 04:05 Total Protein 6.2 g/dL (6.3-8.2) L 12/11/19 04:05 Albumin 3.2 g/dL (3.5-5.0) L 12/11/19 04:05 Triglycerides 110 mg/dL (<150) 12/11/19 04:05 Cholesterol 94.83 mg/dL (0-200) 12/11/19 04:05 LDL Cholesterol Direct 48 mg/dL (<100) 12/11/19 04:05 VLDL Cholesterol 22.0 mg/dL (10-31) 12/11/19 04:05 HDL Cholesterol 28 mg/dL (>40) L 12/11/19 04:05 TSH 2.63 uIU/mL (0.47-4.68) 12/10/19 15:03 Urine Color YELLOW 12/10/19 22:20 Urine Appearance CLEAR 12/10/19 22:20 Urine pH 5.0 (5.0-9.0) 12/10/19 22:20 Ur Specific [place] 1.009 12/10/19 22:20 Urine Protein NEGATIVE mg/dL (NEGATIVE) 12/10/19 22:20 Urine Glucose (UA) NEGATIVE mg/dL (NEGATIVE) 12/10/19 22:20 Urine Ketones NEGATIVE mg/dL (NEGATIVE) 12/10/19 22:20 Urine Blood NEGATIVE (NEGATIVE) 12/10/19 22:20 Urine Nitrite NEGATIVE (NEGATIVE) 12/10/19 22:20 Ur Leukocyte Esterase NEGATIVE (NEGATIVE) 12/10/19 22:20 12/10/19 12/10/19 12/10/19 15:03 15:03 15:03 Creatine Kinase 79 CK-MB (CK-2) 1.23 Troponin I 0.055 NT-Pro-B Natriuret Pep 688 H 12/10/19 12/10/19 12/11/19 19:08 21:42 04:05 Creatine Kinase CK-MB (CK-2) Troponin I 0.239 0.237 0.187 NT-Pro-B Natriuret Pep Current Medication List Generic Name Dose Route Start Last Admin Trade Name Freq PRN Reason Stop Dose Admin Acetaminophen 325 mg 12/10/19 21:03 Tylenol 325 Mg Tablet PO 01/09/20 21:02 Q4HP PRN FEVER >101 Aspirin 81 mg 12/11/19 08:00 Aspirin 81 Mg Chewable Tablet PO 01/10/20 07:59 QAM CARMEN Atenolol 25 mg 12/10/19 22:00 12/10/19 22:28 Tenormin 50 Mg Tablet PO 01/09/20 21:59 Not Given Q12 [facility] Atorvastatin Calcium 40 mg 12/10/19 22:00 12/10/19 22:24 Lipitor 40 Mg Tablet PO 01/09/20 21:59 40 mg QHS CARMEN Administration Dextrose 12.5 gm 12/10/19 21:03 Dextrose Inj 50% Syringe (25 Gm/50 Ml) IV 01/09/20 21:02 PRN PRN FOR BG 50-69 IN ALERT PATIENT Protocol Dextrose 25 gm 12/10/19 21:03 Dextrose Inj 50% Syringe (25 Gm/50 Ml) IV 01/09/20 21:02 PRN PRN See Label Comments Protocol Docusate Sodium 100 mg 12/11/19 10:00 Colace 100 Mg Capsule PO 01/10/20 09:59 DAILY CARMEN Ezetimibe 10 mg 12/11/19 18:00 Zetia 10 Mg Tablet PO 01/10/20 17:59 QPM CARMEN Enoxaparin Sodium 80 mg 12/10/19 22:00 12/10/19 22:24 Lovenox Inj 80 Mg/0.8 Ml Disp.Syrin SUBCUT 01/09/20 21:59 80 mg Q12 CARMEN Administration Famotidine 20 mg 12/10/19 22:00 12/10/19 22:28 Pepcid 20 Mg Tablet PO 01/09/20 21:59 20 mg QHS CARMEN Administration Fluticasone/Vilanterol 1 inh 12/11/19 08:00 Trelegy 100-62.5-25 Mcg Ellipta 14 Dose/Dpi IH 01/10/20 07:59 QAM CARMEN Glucagon 1 mg 12/10/19 21:03 Glucagen Inj 1 Mg Vial SUBCUT 01/09/20 21:02 PRN PRN Evaluate for BG < 70 Protocol Glucose 15 gm 12/10/19 21:03 Glutose 40% Gel 15 Gm Tube PO 01/09/20 21:02 PRN PRN For BG 50-69 in Alert Patient Protocol Glucose 30 gm 12/10/19 21:03 Glutose 40% Gel 15 Gm Tube PO 01/09/20 21:02 PRN PRN FOR BG < 50 IN ALERT PATIENT Protocol Hydralazine HCl 10 mg 12/10/19 21:16 Apresoline Inj/Pf 20 Mg/1 Ml Sdv IV 01/09/20 21:15 Q3HP PRN Give For Sbp > [150] Levalbuterol HCl 0.63 mg 12/10/19 21:03 Xopenex Neb 0.63 Mg/3 Ml Ampul NEB 01/09/20 21:02 RTQ6HP PRN SHORTNESS OF BREATH Metoprolol Tartrate 2.5 mg 12/10/19 21:16 Lopressor Inj/Pf 5 Mg/5 Ml Sdv IV 01/09/20 21:15 Q6HP PRN Give For Hr > [130] Morphine Sulfate 1 mg 12/10/19 21:11 Morphine 10 Mg/Ml Inj IV 12/17/19 21:10 Q4HP PRN chest pain Nitroglycerin 1 tab 12/10/19 21:11 Nitrostat 0.4 Mg (1/150 Gr) Tabs 25/Bottle SL 01/09/20 21:10 Q5MP PRN FOR CHEST PAIN Ondansetron HCl 4 mg 12/11/19 08:00 Zofran Inj/Pf 4 Mg/2 Ml Sdv IV 01/09/20 21:02 Q4HP PRN FOR NAUSEA/VOMITING Oxycodone/Acetaminophen 1 tab 12/10/19 21:03 Percocet 5-325 Mg Tablet PO 12/17/19 21:02 Q4HP PRN FOR PAIN SCALE 4-5 Promethazine HCl 12.5 mg 12/11/19 08:00 Phenergan Inj 25 Mg/1 Ml Vial IV 01/09/20 21:02 Q4HP PRN FOR UNRESOLVED NAUSEA/VOMITING Temazepam 7.5 mg 12/10/19 21:03 Restoril 7.5 Mg Capsule PO 12/17/19 21:02 HSP PRN SLEEP OR INSOMNIA Valsartan 80 mg 12/11/19 08:00 Diovan 80 Mg Tablet PO 01/10/20 07:59 QAM CARMEN Discontinued Medications Generic Name Dose Route Start Last Admin Trade Name Freq PRN Reason Stop Dose Admin Aspirin 162 mg 12/10/19 19:59 12/10/19 20:08 Aspirin 81 Mg Chewable Tablet PO 12/10/19 20:00 162 mg NOW ONE Administration Aspirin 81 mg 12/11/19 10:00 Aspirin 81 Mg Chewable Tablet PO 01/10/20 09:59 DAILY CARMEN Enoxaparin Sodium 80 mg 12/10/19 20:50 12/10/19 21:50 Lovenox Inj 80 Mg/0.8 Ml Disp.Syrin SUBCUT 12/10/19 20:51 Not Given ONCE ONE Sodium Chloride 1,000 mls @ 100 mls/hr 12/10/19 17:40 12/10/19 21:51 Nacl 0.9% 1000 Ml Iv Soln IV 12/11/19 03:39 0 mls/hr NOW ONE Infusion Potassium Chloride/Water 20 meq in 50 mls @ 25 mls/hr 12/10/19 17:41 12/10/19 19:46 Potassium Chloride Gary 20 Meq/50 Ml IV 12/10/19 19:40 Infused NOW ONE Infusion Sodium Chloride 1,000 mls @ 80 mls/hr 12/10/19 21:07 12/10/19 21:44 Nacl 0.9% 1000 Ml Iv Soln IV 12/11/19 06:09 80 mls/hr NOW ONE Administration Ondansetron HCl 4 mg 12/10/19 21:03 Zofran Inj/Pf 4 Mg/2 Ml Sdv IV 01/09/20 21:02 Q4HP PRN FOR NAUSEA/VOMITING Potassium Chloride 20 meq 12/10/19 17:42 12/10/19 17:50 Potassium Chloride 20 Meq Packet PO 12/10/19 17:43 20 meq NOW ONE Administration Promethazine HCl 12.5 mg 12/10/19 21:03 Phenergan Inj 25 Mg/1 Ml Vial IV 01/09/20 21:02 Q4HP PRN FOR UNRESOLVED NAUSEA/VOMITING Valsartan 80 mg 12/11/19 08:00 Diovan 40 Mg Tablet PO 01/10/20 07:59 QAM [facility] Assessment & Plan - Diagnosis (1) Atrial fibrillation with RVR Is this a current diagnosis for this admission?: Yes Plan: The patient just had his first episode of atrial fibrillation which actually converted back to normal sinus rhythm spontaneously. He remains asymptomatic and back to his baseline. The case was discussed with his outpatient supervisor laboratory animal facility, Dr. Khalil at [facility], who will evaluate the patient in his office upon discharge. Recommendations: -Discontinue Lovenox. -Start Eliquis 5 mg p.o. twice daily. -Follow-up with Dr. Khalil as scheduled. (2) CAD (coronary artery disease) Qualifiers: Coronary Disease-Associated Artery/Lesion type: galena artery Is this a current diagnosis for this admission?: Yes Plan: The patient has a history of coronary artery disease as described above. He did have very mildly elevated cardiac troponins however he did not have ischemic symptoms and likely secondary to demand related ischemia (type II OR) particularly in the setting of residual coronary artery disease. I discussed the case with his outpatient supervisor laboratory animal facility, Dr. Franco Khalil, who wants to reevaluate the patient in his office before proceeding with any further work-up. Recommendations: -Continue with current medical management. -Follow-up with Dr. Khalil with [facility] as scheduled. -Cardiology does not have further recommendations therefore we will sign off the case for now.
[2019-12-11] MEDS: ENOXAPARIN SODIUM INJ 80 MG/0.8 ML DISP.SYRIN SUBCUT SCH (10:57)
[2019-12-11] MEDS: ATENOLOL 50 MG TABLET PO SCH (10:58)
--- NOTE | 2019-12-11 13:49 | PDOC DISCHARGE SUMMARY ---
Impression - Admit/DC Date/PCP Admission Date/Primary Care Provider: 12/10/19 20:33 MATIAS ATKINSON MD Discharge Date: 12/11/19 - Assessment Summary: (1) Non-STEMI (non-ST elevated myocardial infarction) Is this a current diagnosis for this admission?: Yes Plan: Possibly NSTEMI type II due to demand mismatch caused by new onset A. fib RVR. Patient denies any chest pain, shortness of breath, orthopnea or paroxysmal nocturnal dyspnea. Troponin on admission 0.055, 0.239 respectively. Admit to [facility]MC, antiplatelets, low molecular weight heparin, statins, beta-block ers, ARB, sublingual nitroglycerin, supplemental oxygen, morphine, 2D echo, trend troponins. Cardiology consulted in anticipation for left heart cath. Follow-up recommendations. 12/11/2019-patient denies any chest pains latest troponin is 0.123. Cardiology consult was done as per Dr. Johnson his receivable clerk Dr. Rubin wants to see him in the office in 3 to 5 days. He recommended no further work-up in this hospital. (2) Atrial fibrillation with RVR Is this a current diagnosis for this admission?: Yes Plan: New onset paroxysmal A. fib RVR. TSH, T3-T4 WNL. CHADS Score 3. Chronic anticoagulation recommended. Rate controlled on beta-blockers. Currently on low molecular weight heparin which could be transitioned to novel anticoagulants upon discharge. Pending 2D echo. Cardiology consulted. Recommendations pending. 12/11/2019-came to the emergency room with A. fib with RVR spontaneously converted in the ER. Patient was advised to start taking Eliquis 5 mg p.o. twice daily. (3) CAD (coronary artery disease) Qualifiers: Coronary Disease-Associated Artery/Lesion type: [place] artery Is this a current diagnosis for this admission?: Yes Plan: Denies any anginal symptoms. History of CAD status post PCI x2 with stent placement. Troponin on admission 0.055, 0.239 respectively. Continue antiplatelets, ARB, beta-blockers, statins. 12/11/19-patient is advised to follow-up with Dr. Khalil in 3 to 5 days. (4) Hypertension Qualifiers: Hypertension type: essential hypertension Qualified Code(s): I10 - Essential (primary) hypertension Is this a current diagnosis for this admission?: Yes Plan: Euvolemic. Normotensive. Resume home meds. Adjust meds as needed. Outpatient PCP and cardiology follow- up. (5) COPD (chronic obstructive pulmonary disease) Qualifiers: COPD type: chronic bronchitis Is this a current diagnosis for this admission?: Yes Plan: History of non-oxygen COPD. Former smoker. Continue duo nebs, PRN BiPAP, LABA, LABA, ICS. (6) Hyperlipidemia Is this a current diagnosis for this admission?: Yes Plan: Resume statin and ezetimibe. Diet and lifestyle modification recommended. TSH WNL. (7) CKD (chronic kidney disease) stage 2, GFR 60-89 ml/min Is this a current diagnosis for this admission?: Yes Plan: History of chronic CKD, nonoliguric, sees Dr. Atkinson as outpatient. Monitor volume status and electrolytes, avoid nephrotoxic meds. Outpatient PCP and nephrology follow-up. - Additional Information Discharge Diet: Cardiac Discharge Activity: Activity As Tolerated Referrals: MATIAS ATKINSON MD [Primary Care Provider] - Follow up as needed (Office stated they will call patient with appointment.) HARPREET KHALIL MD [NO LOCAL MD] - 12/18/19 1:00 pm Prescriptions: Aspirin [Aspirin 81 mg Chewable Tablet] 81 mg PO QAM 30 Days #30 tab.chew Home Medications: Albuterol Sulfate [Proair HFA Inhalation Aerosol 8.5 gm MDI] 1 puff IH Q4HP PRN 12/10/19 Aspirin [Aspirin 81 mg Chewable Tablet] 81 mg PO QAM 12/10/19 Atenolol [Tenormin 50 mg Tablet] 25 mg PO BID 12/10/19 Atorvastatin Calcium [Lipitor 40 mg Tablet] 40 mg PO QHS 12/10/19 Chlorthalidone [Hygroton 25 mg Tablet] 12.5 mg PO QAM 12/10/19 Cholecalciferol (Vitamin D3) [Vitamin D3 1000 Unit Tablet] 1,000 unit PO QPM 12/10/19 Ezetimibe [Zetia] 10 mg PO QPM 12/10/19 Famotidine [Acid Senior Ruby Developer] 20 mg PO BID 12/10/19 Fexofenadine HCl [Elsa Allergy] 180 mg PO QAM 12/10/19 Fluticasone/Umeclidin/Vilanter [Trelegy 100-62.5-25 Mcg Ellipta 14 Dose/Dpi] 1 puff IH QAM 12/10/19 Multivitamin [Multivitamins] 1 cap PO QAM 12/10/19 Valsartan [Diovan] 80 mg PO QAM 12/10/19 Vitamin E 400 unit PO QPM 12/10/19 Aspirin [Aspirin 81 mg Chewable Tablet] 81 mg PO QAM 30 Days #30 tab.chew 12/11/19 History of Present Illiness History of Present Illness: Josep AGRAWAL is a 79 year old male 79 year old male past medical history of CAD status post PCI x2 and stent placement, non-oxygen dependent COPD, hypertension, CKD, hyperlipidemia, presented to ED complaining of feeling weak after returning from grocery shopping this afternoon, patient decided to take a nap but upon awakening he felt palpitation and checked his pressure which was the 90s, he does not have any history of arrhythmia however stated that for long time he has been feeling skipped beats which he has reported to his receivable clerk before, denies any lightheadedness, chest pain, diaphoresis, nausea, vomiting, dyspnea on exertion, orthopnea or paroxysmal nocturnal dyspnea. In ED he was noted to be A. fib RVR which converted spontaneously, ED physician had discussed this case with his receivable clerk Dr. Khalil at [facility] and it was decided for patient to be discharged and follow-up with his receivable clerk however second set of troponin came back 0.239 [address] Beckman receivable clerk was consulted by ED physician and he suggested for patient to be admitted, started on Lovenox in anticipation of a left heart cath on Sunday. Patient very hesitant to stay however after discussing with him that he may have had a heart attack and is not safe to leave patient decided to stay. Patient resting comfortably in bed in no apparent distress, palpitation has resolved, denies any chest pain, nausea, vomiting, diarrhea, fever, chills, cough, abdominal pain, constipation or any urinary symptoms. Hospital Course Hospital Course: 79 year old male past medical history of CAD status post PCI x2 and stent placement, non-oxygen dependent COPD, hypertension, CKD, hyperlipidemia, presented to ED complaining of feeling weak after returning from grocery shopping this afternoon, patient decided to take a nap but upon awakening he felt palpitation and checked his pressure which was the 90s, he does not have any history of arrhythmia however stated that for long time he has been feeling skipped beats which he has reported to his receivable clerk before, denies any lightheadedness, chest pain, diaphoresis, nausea, vomiting, dyspnea on exertion, orthopnea or paroxysmal nocturnal dyspnea. In ED he was noted to be A. fib RVR which converted spontaneously, ED physician had discussed this case with his receivable clerk Dr. Khalil at [facility] and it was decided for patient to be discharged and follow-up with his receivable clerk however second set of troponin came back 0.239 [address] Beckman receivable clerk was consulted by ED physician and he suggested for patient to be admitted, started on Lovenox in anticipation of a left heart cath on Sunday. Patient very hesitant to stay however after discussing with him that he may have had a heart attack and is not safe to leave patient decided to stay. Patient resting comfortably in bed in no apparent distress, palpitation has resolved, denies any chest pain, nausea, vomiting, diarrhea, fever, chills, cough, abdominal pain, constipation or any urinary symptoms. 12/11/[id number]-old male history of coronary artery disease status post stent placement, COPD hypertension CKD hyperlipidemia admitted for not feeling well. In the emergency room found to be in A. fib with RVR which was converted spontaneously. He follows with Dr. Khalil at [facility]. Cardiology consult was done this morning Dr. Beckman spoke to Dr. Khalil and Dr. Khalil wants to see the patient in his office in the next few days. As per Dr. Beckman no further work-up is recommended during this hospital stay. Patient denies any chest pains. The troponin is trending down latest troponin is 0.12. Physical Exam Vital Signs: Temp Pulse Resp BP Pulse Ox 97.7 F 64 17 105/41 L 98 12/11/19 11:22 12/11/19 11:22 12/11/19 11:22 12/11/19 11:22 12/11/19 11:22 Intake & Output 12/10/19 12/11/19 12/12/19 06:59 06:59 06:59 Intake Total 450 240 Output Total 0 Balance 450 240 Weight 82.7 kg General appearance: PRESENT: no acute distress, cooperative, well-developed Head exam: PRESENT: atraumatic Eye exam: PRESENT: PERRLA Mouth exam: PRESENT: moist, tongue midline Teeth exam: PRESENT: poor dentation Neck exam: ABSENT: carotid bruit, JVD, lymphadenopathy, thyromegaly Respiratory exam: PRESENT: clear to auscultation mars. ABSENT: rales, rhonchi, wheezes Cardiovascular exam: PRESENT: RRR. ABSENT: diastolic murmur, rubs, systolic murmur GI/Abdominal exam: PRESENT: normal bowel sounds, soft. ABSENT: distended, guarding, mass, organolmegaly, rebound, tenderness Rectal exam: PRESENT: deferred Extremities exam: PRESENT: full ROM. ABSENT: calf tenderness, clubbing, pedal edema Neurological exam: PRESENT: alert, awake, oriented to person, oriented to place, oriented to time, oriented to situation, CN II-XII grossly intact. ABSENT: motor sensory deficit Psychiatric exam: PRESENT: appropriate affect, normal mood. ABSENT: homicidal ideation, suicidal ideation Results Laboratory Results: WBC 8.5 10^3/uL (4.0-10.5) 12/11/19 04:05 RBC 3.76 10^6/uL (4.35-5.55) L 12/11/19 04:05 Hgb 11.2 g/dL (13.5-17.0) L 12/11/19 04:05 Hct 32.9 % (37.9-51.0) L 12/11/19 04:05 MCV 88 fl (80-97) 12/11/19 04:05 MCH 29.7 pg (27.0-33.4) 12/11/19 04:05 MCHC 34.0 g/dL (32.0-36.0) 12/11/19 04:05 RDW 14.4 % (11.5-14.0) H 12/11/19 04:05 Plt Count 258 10^3/uL (150-450) 12/11/19 04:05 Lymph % (Auto) 17.9 % (13-45) 12/11/19 04:05 Leslie % (Auto) 13.0 % (3-13) 12/11/19 04:05 Eos % (Auto) 9.8 % (0-6) H 12/11/19 04:05 Baso % (Auto) 0.7 % (0-2) 12/11/19 04:05 Absolute Neuts (auto) 5.0 10^3/uL (1.7-8.2) 12/11/19 04:05 Absolute Lymphs (auto) 1.5 10^3/uL (0.5-4.7) 12/11/19 04:05 Absolute Monos (auto) 1.1 10^3/uL (0.1-1.4) 12/11/19 04:05 Absolute Eos (auto) 0.8 10^3/uL (0.0-0.6) H 12/11/19 04:05 Absolute Basos (auto) 0.1 10^3/uL (0.0-0.2) 12/11/19 04:05 Seg Neutrophils % 58.6 % (42-78) 12/11/19 04:05 PT 13.7 SEC (11.4-15.4) 12/10/19 15:03 INR 1.03 12/10/19 15:03 Sodium 136.4 mmol/L (137-145) L 12/11/19 04:05 Potassium 3.4 mmol/L (3.6-5.0) L 12/11/19 04:05 Chloride 101 mmol/L (98-107) 12/11/19 04:05 Carbon Dioxide 28 mmol/L (22-30) 12/11/19 04:05 Anion Gap 7 (5-19) 12/11/19 04:05 BUN 26 mg/dL (7-20) H 12/11/19 04:05 Creatinine 1.59 mg/dL (0.52-1.25) H 12/11/19 04:05 Est GFR ( Amer) 51 (>60) L 12/11/19 04:05 Est GFR (MDRD) Non-Af 42 (>60) L 12/11/19 04:05 Glucose 92 mg/dL (75-110) 12/11/19 04:05 Hemoglobin A1c % 6.0 % (4.7-6.0) 12/11/19 04:05 Calcium 8.5 mg/dL (8.4-10.2) 12/11/19 04:05 Phosphorus 3.5 mg/dL (2.5-4.5) 12/11/19 04:05 Magnesium 2.2 mg/dL (1.6-2.3) 12/11/19 04:05 Total Bilirubin 0.7 mg/dL (0.2-1.3) 12/11/19 04:05 Direct Bilirubin 0.3 mg/dL (0.0-0.4) 12/11/19 04:05 Neonat Total Bilirubin Not Reportable 12/11/19 04:05 Neonat Direct Bilirubin Not Reportable 12/11/19 04:05 Neonat Indirect Bili Not Reportable 12/11/19 04:05 AST 41 U/L (17-59) 12/11/19 04:05 ALT 26 U/L (<50) 12/11/19 04:05 Alkaline Phosphatase 87 U/L (38-126) 12/11/19 04:05 Creatine Kinase 79 U/L (55-170) 12/10/19 15:03 CK-MB (CK-2) 1.23 ng/mL (<4.55) 12/10/19 15:03 Troponin I 0.121 ng/mL 12/11/19 09:41 NT-Pro-B Natriuret Pep 688 pg/mL (<450) H 12/10/19 15:03 Total Protein 6.2 g/dL (6.3-8.2) L 12/11/19 04:05 Albumin 3.2 g/dL (3.5-5.0) L 12/11/19 04:05 Triglycerides 110 mg/dL (<150) 12/11/19 04:05 Cholesterol 94.83 mg/dL (0-200) 12/11/19 04:05 LDL Cholesterol Direct 48 mg/dL (<100) 12/11/19 04:05 VLDL Cholesterol 22.0 mg/dL (10-31) 12/11/19 04:05 HDL Cholesterol 28 mg/dL (>40) L 12/11/19 04:05 TSH 2.63 uIU/mL (0.47-4.68) 12/10/19 15:03 Urine Color YELLOW 12/10/19 22:20 Urine Appearance CLEAR 12/10/19 22:20 Urine pH 5.0 (5.0-9.0) 12/10/19 22:20 Ur Specific [place] 1.009 12/10/19 22:20 Urine Protein NEGATIVE mg/dL (NEGATIVE) 12/10/19 22:20 Urine Glucose (UA) NEGATIVE mg/dL (NEGATIVE) 12/10/19 22:20 Urine Ketones NEGATIVE mg/dL (NEGATIVE) 12/10/19 22:20 Urine Blood NEGATIVE (NEGATIVE) 12/10/19 22:20 Urine Nitrite NEGATIVE (NEGATIVE) 12/10/19 22:20 Urine Bilirubin NEGATIVE (NEGATIVE) 12/10/19 22:20 Urine Urobilinogen NEGATIVE mg/dL (<2.0) 12/10/19 22:20 Ur Leukocyte Esterase NEGATIVE (NEGATIVE) 12/10/19 22:20 Urine RBC RARE /HPF 12/10/19 22:20 Urine WBC RARE /HPF 12/10/19 22:20 Urine Ascorbic Acid NEGATIVE (NEGATIVE) 12/10/19 22:20 12/10/19 12/10/19 12/10/19 15:03 15:03 19:08 CK-MB (CK-2) 1.23 Troponin I 0.055 0.239 NT-Pro-B Natriuret Pep 688 H 12/10/19 12/11/19 12/11/19 21:42 04:05 09:41 CK-MB (CK-2) Troponin I 0.237 0.187 0.121 NT-Pro-B Natriuret Pep Impressions: Chest X-Ray 12/10/19 15:48 IMPRESSION: COPD. No acute findings. Plan Plan of Treatment: Patient is strongly advised to follow-up with Dr. Rubin in 3 to 5 days. Time Spent: Greater than 30 Minutes Stroke Is this a Stroke Patient?: No Acute Heart Failure - Is this a Heart Failure Patient?: No
[2019-12-11 14:38] VITALS: BP 98/87
[2019-12-11] MEDS ORDERED: EZETIMIBE 10 MG TABLET PO SCH (18:00)
--- NOTE | 2019-12-12 09:36 | XCELERA REPORT ---
[address] [address] Transthoracic Echocardiogram Report Name: Josep AGRAWAL Age: 79 yrs Gender: Male : 1940 Patient Status: Inpatient Patient Location: [address] [place] [address] Study Date: 12/11/2019 08:38 AM Height: 72 in Weight: 179 lb BSA: 2.0 m2 Procedure: A complete two-dimensional transthoracic echocardiogram was performed (2D, M-mode, spectral and color flow Doppler). Study Quality: Good. Reason For Study: afib, nstemi Ordering Physician: YANCI MEDINA Performed By: Margarita Keen Interpretation Summary The left ventricle is normal in size. Left ventricular systolic function is normal. The Ejection Fraction estimate is 60-65%. Doppler measurements suggest normal left ventricular diastolic function. No regional wall motion abnormalities noted. There is no thrombus. Mild LAE. Trace MR, trace TR. Aortic and pulmonic valves not well visualized. No prior studies for comparison. MMode/2D Measurements & Calculations RVDd: 1.7 cm LVIDd: 4.9 cm FS: 42.4 % Ao root diam: 2.9 cm IVSd: 0.99 cm LVIDs: 2.8 cm EDV(Teich): 111.0 ml Ao root area: 6.8 cm2 LVPWd: 0.97 cm ESV(Teich): 29.6 ml EF(Teich): 73.3 % Doppler Measurements & Calculations MV E max nidia: MV dec slope: Ao V2 max: LV V1 max P.3 cm/sec 426.7 cm/sec2 117.3 cm/sec 4.8 mmHg MV A max nidia: MV dec time: 0.21 sec Ao max PG: LV V1 max: 61.3 cm/sec 5.5 mmHg 109.7 cm/sec MV E/A: 1.5 PA V2 max: TR max nidia: 83.7 cm/sec 264.4 cm/sec PA max P.8 mmHgTR max P.0 mmHg Left Ventricle The left ventricle is normal in size. Left ventricular systolic function is normal. The Ejection Fraction estimate is 60-65%. Doppler measurements suggest normal left ventricular diastolic function. No regional wall motion abnormalities noted. There is no thrombus. Right Ventricle The right ventricle is normal in size, thickness and function. The right ventricular systolic function is normal. Atria The right atrium is normal. The left atrium is mildly dilated. The interatrial septum is intact with no evidence for an atrial septal defect. Mitral Valve The mitral valve is normal in structure and function. There is a trace amount of mitral regurgitation. Aortic Valve The aortic valve is not well visualized secondary to technical limitations. No aortic regurgitation is present. Tricuspid Valve The tricuspid is normal in structure and function. There is a trace amount of tricuspid regurgitation. Pulmonic Valve The pulmonic valve is not well visualized. Great Vessels The inferior vena cava appeared normal. Effusions There is no pericardial effusion. There is no pleural effusion. : YANCI MEDINA Antonio
== END 2019-12-11 14:30 | disposition home or self-care (01) | DRG 282 ==
LOC: ER 15:39 → EH 20:33 → 5 23:48
PROVIDERS: ADMIT Internal Medicine; ATTEND Internal Medicine
PROC: B24BZZZ Ultrasonography of Heart with Aorta (ICD-10-PCS; principal; 2019-12-11)
DX: I48.0 Paroxysmal atrial fibrillation (principal); I21.A1 Myocardial infarction type 2; I25.10 Atherosclerotic heart disease of native coronary artery without angina pectoris; E87.6 Hypokalemia; J44.9 Chronic obstructive pulmonary disease, unspecified; E78.5 Hyperlipidemia, unspecified; I12.9 Hypertensive chronic kidney disease with stage 1 through stage 4 chronic kidney disease, or unspecified chronic kidney disease; N18.2 Chronic kidney disease, stage 2 (mild); Z95.5 Presence of coronary angioplasty implant and graft; F17.200 Nicotine dependence, unspecified, uncomplicated; E11.22 Type 2 diabetes mellitus with diabetic chronic kidney disease
CPT/HCPCS: 36415; 71045; 80053; 80061; 81001; 82550; 82553; 83036; 83735; 83880; 84100; 84443; 84484; 85025; 85610; 93005; 93010; 93306; 96360; 96361; 99285; J1650; J3480; J3490; J7030